=== PATIENT | female | born 1995 | race Caucasian/White ===

== ENCOUNTER 2018-04-03 00:59 | Inpatient (IN) | payer OTHER ==
[~2018-04-03] VITALS: Ht 162.6 cm; Wt 88.5 kg
[2018-04-03] MEDS ORDERED: PRENATAL TABLE1 EAC1 PO (01:09)
== END 2018-04-04 10:52 | disposition home or self-care (01) | DRG 781 ==
LOC: OBS/DEL 00:59 → LDR 04:47 → OB/GYN 13:47
PROC: 4A1HXCZ Monitoring of Products of Conception, Cardiac Rate, External Approach (ICD-10-PCS; principal; 2018-04-03)
DX: O23.32 Infections of other parts of urinary tract in pregnancy, second trimester (principal); O26.893 Other specified pregnancy related conditions, third trimester; M94.0 Chondrocostal junction syndrome [Tietze]; R06.02 Shortness of breath; R10.2 Pelvic and perineal pain

== ENCOUNTER 2018-04-30 07:40 | Inpatient (IN) | payer OTHER ==
[~2018-04-30] VITALS: Ht 162.6 cm; Wt 87.5 kg
[~2018-04-30 07:40] MED LIST: PRENATAL TABLE1 EAC1 PO
== END 2018-05-02 14:51 | DRG 807 ==
LOC: LDR 07:40 → OB/GYN 16:47
PROC: 10E0XZZ Delivery of Products of Conception, External Approach (ICD-10-PCS; principal; 2018-04-30)
PROC: 0KQM0ZZ Repair Perineum Muscle, Open Approach (ICD-10-PCS; 2018-04-30)
PROC: 10907ZC Drainage of Amniotic Fluid, Therapeutic from Products of Conception, Via Natural or Artificial Opening (ICD-10-PCS; 2018-04-30)
PROC: 3E033VJ Introduction of Other Hormone into Peripheral Vein, Percutaneous Approach (ICD-10-PCS; 2018-04-30)
PROC: 4A1HXCZ Monitoring of Products of Conception, Cardiac Rate, External Approach (ICD-10-PCS; 2018-04-30)
DX: O70.1 Second degree perineal laceration during delivery (principal); Z37.0 Single live birth; Z3A.38 38 weeks gestation of pregnancy